=== PATIENT | male | born 1965 | race Caucasian/White ===

== ENCOUNTER → 2020-07-16 | Outpatient (CLI) | payer OTHER | LOC: CAT 13:42 | PROVIDERS: ATTEND Family Medicine | DX: Z13.6 Encounter for screening for cardiovascular disorders (principal); E78.00 Pure hypercholesterolemia, unspecified; I25.10 Atherosclerotic heart disease of native coronary artery without angina pectoris ==

== ENCOUNTER → 2020-07-27 | Outpatient (CLI) | payer OTHER | LOC: CAT 12:42 | PROVIDERS: ATTEND Family Medicine | DX: C85.90 Non-Hodgkin lymphoma, unspecified, unspecified site (principal); N20.0 Calculus of kidney ==